=== PATIENT | female | born 1990 | race Hispanic/Latino ===

== ENCOUNTER 2021-07-30 19:02 | Emergency (ER) | payer OTHER, SELFPAY ==
[2021-07-30 19:10] VITALS: BP 122/75; PULSE 80; RESP 16; TEMP 36.6; O2SAT 99
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
== END 2021-07-30 19:32 | disposition home or self-care (01) ==
PROVIDERS: Emergency Provider Nurse Practitioner; PCP Family Medicine
DX: S05.02XA Injury of conjunctiva and corneal abrasion without foreign body, left eye, initial encounter (principal); W22.8XXA Striking against or struck by other objects, initial encounter; Y93.55 Activity, bike riding
CPT/HCPCS: 99203; A9270; G0463

== ENCOUNTER 2021-11-25 13:20 | Emergency (ER) | payer OTHER, SELFPAY ==
[2021-11-25 13:29] VITALS: BP 110/65; PULSE 93; RESP 16; TEMP 37.2; O2SAT 100
--- NOTE | 2021-11-25 16:38 | ED.EAR ---
HPI - Ear Problem General Chief complaint: Ear Stated complaint: ear infection, congestion Source: patient Mode of arrival: ambulatory Limitations: no limitations History of Present Illness HPI Narrative: Patient presents for evaluation of sinus congestion, pressure, right-sided ear pain. Symptom onset 7 days ago. Symptoms worsened 3 days ago. She has had similar symptoms with bacterial sinusitis in the past. She reports right-sided postnasal drainage and rhinorrhea. No fever, chills, nausea, vomiting, or respiratory symptoms. She has been taking Sudafed without considerable improvement in her symptoms or after. She does not smoke. No recent sick contacts. In the past she has not responded to amoxicillin. She has not received COVID vaccination. No additional complaints or concerns. Related Data Allergies Allergy/AdvReac Type Severity Reaction Status Date / Time No Known Allergies Allergy Verified 07/30/21 19:10 Review of Systems Review of Systems: CONSTITUTIONAL: Denies fever, chills, or sweats. EYES: Denies visual changes, redness, or discharge. ENT: Reports sinus congestion, postnasal drainage, rhinorrhea, right-sided ear pressure CARDIOVASCULAR: Denies chest pain, palpitations, or edema. RESPIRATORY: Denies cough or dyspnea. GASTROINTESTINAL: Denies abdominal pain, nausea, vomiting, or diarrhea. GENITOURINARY: Denies dysuria or hematuria. SKIN: Denies rash or itching. MUSCULOSKELETAL: Denies back pain, joint pain, or myalgia. NEUROLOGIC: Reports headache. Denies numbness, dizziness, or weakness. PSYCHIATRIC: Denies anxiety or depression. [facility] Past Medical History Medical History No pertinent past medical history Surgical History Surgical History No pertinent past surgical history Family History Family History Father Hypertension Mother Hypertension Family history of type 2 diabetes mellitus Other Asthma Social History Social History Smoking status: Never smoker Alcohol intake: never Substance use: never Gender identity (if verbalized by the patient): Female Spiritual care concerns: No Exam Narrative: GENERAL: Well-appearing, well-nourished, and in no acute distress. HEAD: Normocephalic, atraumatic. Right sided maxillary and frontal sinus tenderness. EYES: PERRLA and EOMI. ENT: Nares with clear rhinorrhea. Mucous membranes moist. Oropharynx without tonsillar hypertrophy exudate or other lesions. Right TM erythematous. Left TM pearly duncan nonbulging NECK: Supple. No adenopathy or masses. No carotid bruits or JVD CHEST: Clear to auscultation. No respiratory distress. No wheezes rales or rhonchi HEART: Regular rate and rhythm. No murmur heard. Normal peripheral pulses. ABDOMEN: Soft, nontender, nondistended, normal active bowel sounds. EXTREMITIES: Normal range of motion. No edema. SKIN: Warm, dry, no rash. NEURO: No focal deficits. Alert and oriented x3. PSYCH: Normal mood and affect. Course Course Emergency Course: This is a 31-year-old female who presented for evaluation of headache, sinus congestion, drainage, right-sided ear pressure. Based on duration of symptoms she meets criteria for ABRS. She has had little relief with sudafed. Flonase may help. Little relief in past with amoxicillin. Will send script for doxycycline. Follow-up evaluation and treatment and return for worsening symptoms. Patient agreement with plan of care. Level of Care: Express Care Visit Vital Signs Vital signs: Vital Signs Temperature 37.2 C 11/25/21 13:29 Pulse Rate 93 11/25/21 13:29 Respiratory Rate 16 11/25/21 13:29 Blood Pressure 110/65 11/25/21 13:29 Pulse Oximetry 100 11/25/21 13:29 Temperature 37.2 C 11/25/21 13:29 Pulse
== END 2021-11-25 14:13 | disposition home or self-care (01) ==
PROVIDERS: Emergency Provider Nurse Practitioner; PCP Family Medicine
DX: J32.9 Chronic sinusitis, unspecified (principal)
CPT/HCPCS: 99213; G0463

== ENCOUNTER 2023-03-09 14:13 | Emergency (ER) | payer BC, SELFPAY ==
--- NOTE | ~2023-03-09 | XR_ITS ---
EXAM: XR foot RT min 3V DATE: 03/09/2023 14:38 HISTORY: injury, pain right 5th toe and metatarsal . COMPARISON: None available. FINDINGS: Normal mineralization. Tiny ossific fragment off the anteromedial corner of the fifth midd le phalange adjacent to the fifth PIP joint. No lytic or blastic lesion. Joint spaces are maintained. No erosion or periosteal change. Soft tissues within normal limits. IMPRESSION: Acute versus chronic avulsion fracture off the anteromedial corner of the right fifth mid dle phalange, correlate with pain/tenderness. Reviewed, dictated and finalized at location K. ESTIMATOR IMPRESSION: Acute versus chronic avulsion fracture off the anteromedial corner of the right fifth middle phalange, correlate with pain/tenderness.
[2023-03-09 14:28] VITALS: BP 122/75; PULSE 81; RESP 16; TEMP 36.6; O2SAT 100
--- NOTE | 2023-03-09 14:38 | ED.LOWEXIN ---
HPI - Extremity Injury (Lower) General Chief Complaint: Extremity Injury, Lower Stated Complaint: Injured Toe Time Seen by Provider: 03/09/23 14:38 Source: patient, RN notes reviewed and old records reviewed Mode of arrival: ambulatory Limitations: no limitations History of Present Illness HPI Narrative: 32-year-old female presents to the [facility] with complaints of 5th toe pain right foot. Bruising is noted to the medial aspect of the toe. No swelling noted. Tenderness MTP Patient states night she was walking and hit her toe on a door jamb. Has taken ibuprofen and been zay taping it. Onset (ago): day(s) (2) Related Data Allergies Allergy/AdvReac Type Severity Reaction Status Date / Time No Known Allergies Allergy Verified 03/09/23 14:27 Review of Systems Review of Systems: All systems reviewed & are unremarkable except as noted in HPI and below Constitutional: Constitutional: Reports no additional constitutional complaints Eyes: Eyes: Reports no additional eye complaints ENT: Reports system reviewed and no additional complaints, except as documented Cardiovascular: Cardiovascular: Reports no additional cardiovascular complaints, Denies chest pain and Denies dyspnea Respiratory: Respiratory: Reports no additional respiratory complaints, Denies chest congestion, Denies cough and Denies dyspnea Gastrointestinal: Gastrointestinal: Reports no additional gastrointestinal complaints, Denies abdominal pain, Denies nausea and Denies vomiting Musculoskeletal: Musculoskeletal: Reports as per HPI Integumentary/Breasts: Skin/Breast: Reports system reviewed and no additional complaints, except as docu Neurologic: Reports system reviewed and no additional complaints, except as documented Psychiatric: Psychiatric: Reports no additional psychiatric complaints Allergic/Immunologic: Allergic/Immunologic: Reports no additional allergic/immunologic complaints [facility] Past Medical History Medical History No pertinent past medical history Surgical History Surgical History No pertinent past surgical history Family History Family History Father Hypertension Mother Hypertension Family history of type 2 diabetes mellitus Other Asthma Social History Social History Smoking status: Never smoker Alcohol intake: never Substance use: never Living arrangements: alone Gender identity (if verbalized by the patient): Female Spiritual care concerns: No Comments At the time of my signature, I reviewed and agree with the nursing past medical, surgical, social, and family history. There is no relevant family history pertinent to the patient complaint. Exam Const: General: cooperative, healthy appearing, comfortable, no acute distress, well developed, alert and well nourished Nutritional Appearance: well nourished Orientation/consciousness: patient oriented x3 Limitations: no limitations HENMT: Head: normal to inspection Ears: hearing grossly normal bilaterally and external ears normal Face/Nose/Sinus: Normal external nose present, Normal nares present, Normal nasal mucous membranes and turbinates present, normal facial exam and face symmetric Face and sinus: normal facial exam and face symmetric Eyes: General: appearance normal, both eyes and all related structures Alignment and Position: alignment normal Periorbital: periorbital findings normal Pupils: Equal, round and reactive pupils present EOM: EOMs intact bilaterally Neck: Neck: normal visual inspection, full ROM, no lymphadenopathy and no meningeal signs Chest: Chest palpation & inspection: normal inspection of the chest Resp: Effort & Inspection: normal respiratory effort and able to speak in complete sentences Cardio: Rate:
== END 2023-03-09 15:15 | disposition home or self-care (01) ==
PROVIDERS: Emergency Provider Nurse Practitioner
DX: S92.514A Nondisplaced fracture of proximal phalanx of right lesser toe(s), initial encounter for closed fracture (principal); W22.09XA Striking against other stationary object, initial encounter
CPT/HCPCS: 73630; 99214; G0463

== ENCOUNTER 2023-12-17 08:57 | Emergency (ER) | payer BC, SELFPAY ==
--- NOTE | ~2023-12-17 | XR_ITS ---
XR chest 2V Ordering provider: Erin Roque APRN History: 33 years Female with . chest congestion, fever, cough with cp, sob for 5 days . Comparison: None. FINDINGS: MEDIASTINUM: The cardiac silhouette is not enlarged. LUNGS: No infiltrates, effusions or pneumothorax. OTHER: No free air under the diaphragm. IMPRESSION: No acute cardiopulmonary pathology. Reviewed, dictated and finalized at location A.
--- NOTE | 2023-12-17 09:01 | ED.URI ---
HPI - URI/Sore Throat General Chief Complaint: Upper Respiratory Infection Stated Complaint: Congestion Source: patient and RN notes reviewed Mode of arrival: ambulatory Limitations: no limitations History of Present Illness HPI Narrative: Patient is a 33-year-old female who presents to the [facility] with complaints of chest congestion, cough, and nasal congestion. Patient states that she developed the symptoms on Saturday. She states that her symptoms improved over the weekend but worsened upon waking this morning. She reports worsening chest congestion. She endorses a frequent wet cough. States that she has also been experiencing bilateral ear pain. She denies sore throat. She reports increased fatigue. States that she had a fever on Saturday but is unsure of fever since that time. Denies chest pain or shortness of breath. Denies abdominal pain, nausea, vomiting, diarrhea. Related Data Allergies Allergy/AdvReac Type Severity Reaction Status Date / Time No Known Allergies Allergy Verified 12/17/23 09:04 Review of Systems Review of Systems: CONSTITUTIONAL: Reports fever, chills, or sweats. EYES: Denies visual changes, redness, or discharge. ENT: Reports otalgia but denies sore throat CARDIOVASCULAR: Denies chest pain, palpitations, or edema. RESPIRATORY: Reports cough but denies dyspnea. GASTROINTESTINAL: Denies abdominal pain, nausea, vomiting, or diarrhea. GENITOURINARY: Denies dysuria or hematuria. SKIN: Denies rash or itching. MUSCULOSKELETAL: Denies back pain, joint pain, or myalgia. NEUROLOGIC: Denies headache, numbness, or weakness. Pertinent positives per HPI. [facility] Past Medical History Medical History No pertinent past medical history Surgical History Surgical History No pertinent past surgical history Family History Family History Father Hypertension Mother Hypertension Family history of type 2 diabetes mellitus Other Asthma Social History Social History Smoking status: Never smoker Alcohol intake: never Substance use: never Living arrangements: alone Gender identity (if verbalized by the patient): Female Spiritual care concerns: No Comments At the time of my signature, I reviewed and agree with the nursing past medical, surgical, social, and family history. There is no relevant family history pertinent to the patient complaint. Exam Narrative: GENERAL: This is a well-nourished, well-developed patient, in no apparent distress. HEAD: normocephalic, atraumatic. EYES: PERRL. Sclera clear/white. Vision is grossly intact. EARS: External ears normal, auditory canals clear and without drainage, TMs normal without perforation. Hearing grossly intact. NOSE: External nose normal with no obvious nasal discharge, nares without redness, no rhinorrhea. THROAT: Mucous membranes moist, posterior pharynx clear. NECK: Neck supple, non-tender without lymphadenopathy, masses or thyromegaly. CARDIOVASCULAR: Regular rate and rhythm without murmurs, gallops, or rubs. RESPIRATORY: Clear to auscultation. Breath sounds equal bilaterally. No wheezes, rales, or rhonchi. GASTROINTESTINAL: Abdomen soft, non-tender, nondistended. Bowel sounds are active. No hepato-splenomegaly, or palpable masses. No guarding. SKIN: warm, intact with no suspicious lesions or rash, good texture and turgor. NEURO: awake, alert, and oriented to person, place and time. There were no obvious focal neurologic abnormalities. EXTREMITIES: No clubbing, cyanosis, or edema. No joint tenderness, effusion, or edema noted. BACK: Nontender without deformity or crepitance. No flank tenderness. Course Course Level of Care: Express Care Visit Vital Signs Vital signs: Vital Signs Temperature 98.6 F
[2023-12-17 09:05] VITALS: BP 106/68; PULSE 86; RESP 16; TEMP 37; O2SAT 99
[2023-12-17 09:33] LABS: EDCOVIDSCREEN Negative (Negative); EDINFLUASCREEN Negative (Negative); EDINFLUBSCREEN Negative (Negative)
== END 2023-12-17 09:33 | disposition home or self-care (01) ==
PROVIDERS: Emergency Provider Nurse Practitioner
DX: J01.80 Other acute sinusitis (principal); Z20.822 Contact with and (suspected) exposure to COVID-19
CPT/HCPCS: 71046; 87426; 87804; 99213; G0463

== ENCOUNTER 2024-09-10 14:50 | Emergency (ER) | payer BC, SELFPAY ==
--- NOTE | ~2024-09-10 | XR_ITS ---
EXAMINATION: XR foot RT min 3V DATE: 09/10/2024 15:19 INDICATION: Distal right fourth toe pain TECHNIQUE: Dorsoplantar, two oblique and lateral views of the right foot were obtained. COMPARISON: 03/09/2023 FINDINGS: Alignment is normal. No fracture. Joint spaces are normal. Soft tissues are unremarkable. IMPRESSION: 1. Negative right foot radiographs with no acute osseous abnormality. Reviewed, dictated and finalized at location B.
[2024-09-10 15:02] VITALS: BP 130/80; PULSE 81; RESP 14; TEMP 36.8; O2SAT 100
--- NOTE | 2024-09-10 15:15 | ED_ITS ---
HPI - Extremity Injury (Lower) General Chief Complaint: Extremity Injury, Lower Stated Complaint: Stumped toe on right foot, rash toe, skin hot to t Time Seen by Provider: 09/10/24 15:10 Source: patient and RN notes reviewed Mode of arrival: ambulatory Limitations: no limitations History of Present Illness HPI Narrative: 34-year-old female presents Express Care complaining of right 4th toe injury. Patient said 1 week ago she stubbed her 4th toe against the bed frame injuring her toe. Since then patient reports having pain with bearing weight to the plantar per distal area near her right 4th toe having pain in her right for toe. Patient also reports increased redness and swelling to her toe and has been putting antibiotic ointment on a says since then she has developed a rash the dorsal surface of her foot. Patient reports the rash is pruritic. Patient denies any discharge, fevers, body aches, chills, numbness tingling, or any other injuries or symptoms. Denies any significant past medical history. Related Data Allergies Allergy/AdvReac Type Severity Reaction Status Date / Time No Known Allergies Allergy Verified 12/17/23 09:04 Review of Systems Review of Systems: CONSTITUTIONAL: Denies fever, chills, or sweats. EYES: Denies visual changes, redness, or discharge. ENT: Denies rhinorrhea, congestion, sore throat, or otalgia. CARDIOVASCULAR: Denies chest pain, palpitations, or edema. RESPIRATORY: Denies cough or dyspnea. GASTROINTESTINAL: Denies abdominal pain, nausea, vomiting, or diarrhea. GENITOURINARY: Denies dysuria or hematuria. SKIN: Positive for rash and itching. MUSCULOSKELETAL: Denies back pain, joint pain, or myalgia. Positive for toe pain. NEUROLOGIC: Denies headache, numbness, or weakness. PSYCHIATRIC: Denies anxiety or depression. All other systems reviewed are negative, except as documented in HPI. [facility] Past Medical History Medical History No pertinent past medical history Surgical History Surgical History No pertinent past surgical history Family History Family History Father Hypertension Mother Hypertension Family history of type 2 diabetes mellitus Other Asthma Social History Social History Smoking status: Never smoker Alcohol intake: never Substance use: never Living arrangements: alone Gender identity (if verbalized by the patient): Female Spiritual care concerns: No Comments At the time of my signature, I reviewed and agree with the nursing past medical, surgical, social, and family history. There is no relevant family history pertinent to the patient complaint. Exam Narrative: GENERAL: This is a well-nourished, well-developed adult, in no apparent distress. They are non ill-appearing, nontoxic appearing. HEAD: normocephalic, atraumatic. EYES: Sclera clear/white. Conjunctiva normal. Vision is grossly intact. Extraocular movements intact EARS: External ears normal, Hearing grossly intact. NOSE: External nose normal THROAT: Mucous membranes moist, NECK: Neck supple CARDIOVASCULAR: Regular rate and rhythm RESPIRATORY: Respiratory rate normal, respiratory effort nonlabored, no respiratory distress SKIN: warm, Dry, intact with no suspicious lesions or rash, good texture and turgor. NEURO: awake, alert, and oriented to person, place and time. There were no obvious focal neurologic abnormalities. EXTREMITIES: Right foot: No obvious deformity, swelling, injury, redness, or bruising. No bony tenderness. Fourth toe without redness, swelling, bruising, tenderness, or deformity. There is tenderness to palpation to the plantar surface the distal foot near the 4th toe. There is a small scant, scattered, circular, papular, pruritic rash on the dorsal surface the distal foot. No area of fluctuance, induration, skin is not to touch. Right pedal pulse 2 +and palpable. Capillary refill less than 3 seconds. Patient is able to wiggle her toes. Normal dorsiflexion plantar flexion of foot. Nail beds are yellow. BACK: Nontender without deformity. Course Course Emergency Course: Portions of this record may have been created with voice recognition software Level of Care: Express Care Visit Vital Signs Vital signs: Vital Signs Temperature 98.3 F 09/10/24 15:02 Pulse Rate 81 09/10/24 15:02 Respiratory Rate 14 09/10/24 15:02 Blood Pressure 130/80 09/10/24 15:02 Pulse Oximetry 100 09/10/24 15:02 Oxygen Delivery Room Air 09/10/24 15:02 Temperature 98.3 F 09/10/24 15:02 Pulse Rate 81 09/10/24 15:02 Respiratory Rate 14 09/10/24 15:02 Blood Pressure 130/80 09/10/24 15:02 Pulse Oximetry 100 09/10/24 15:02 Oxygen Delivery Room Air 09/10/24 15:02 Reviewed MDM - Extremity Injury (Lower) MDM Narrative Medical decision making narrative: X-ray right foot showed no evidence of fracture or acute findings.. No evidence of infection or cellulitis. Rash appears to be a contact dermatitis which could be from the [id number] antibiotic ointment. Patient has type use antibiotic ointment. Prescribe patient steroid cream to help with swelling and itchiness. Discussed physical exam findings. Advised supportive measures and signs/symptoms to go to the ER. Pt is appropriate for outpt treatment and f/u. Differential Diagnosis Differential diagnosis: Likely fracture of toe and other (Foot fracture, cellulitis, athlete's foot) Imaging Data Radiologist's impression: ITS Impressions Foot X-Ray 09/10/24 16:00 IMPRESSION: 1. Negative right foot radiographs with no acute osseous abnormality. Critical Care Time Critical Care Time Critical Care Time: No Discharge Plan Discharge Clinical Impression: Rash of foot Injury of toe Qualifiers: Encounter type: initial encounter Laterality: right Qualified Code(s): S99.921A - Unspecified injury of right foot, initial encounter Patient Disposition: Home Condition: Stable Instructions: Foot Contusion (ED) Additional Instructions: The x-ray of your right foot is negative for any fracture or acute findings. There is no evidence of infection to your 4th toe on your right foot. Please stop use antibiotic ointment as it may be causing a rash on your foot. Use steroid cream as directed. Please follow-up PCP in 1 week. If you notice any worsening redness, swelling, pain, drainage to your foot, or fevers please go to the ER immediately. Patient Language: Thai Prescriptions: New triamcinolone acetonide 0.1 % lotion 1 applic topical BID 7 Days Qty: 60 0RF Rx Instructions: Apply to affected area. No Action fluticasone propionate [Flonase Allergy Relief] 50 mcg/actuation spray,suspension 1 spray intranasal BID Qty: 16 0RF Rx Instructions: administer into each nostril benzonatate 100 mg capsule 100 mg PO BID PRN (Reason: cough) Qty: 20 0RF Follow-up/Referrals: PHYSICIAN,THERMOMETER TESTER [Primary Care Provider] - Time of Disposition: 16:11
== END 2024-09-10 16:16 | disposition home or self-care (01) ==
DX: R21 Rash and other nonspecific skin eruption (principal); S99.921A Unspecified injury of right foot, initial encounter; W22.8XXA Striking against or struck by other objects, initial encounter
CPT/HCPCS: 73630; 99213; G0463